=== PATIENT | male | born 1995 | race African-American/Black ===

== ENCOUNTER 2019-01-11 00:55 | Emergency (ER) | payer SELFPAY ==
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
== END 2019-01-11 01:15 ==
LOC: JD.ED 00:55
DX: F10.929 Alcohol use, unspecified with intoxication, unspecified (principal)
CPT/HCPCS: 99283

== ENCOUNTER 2022-05-10 15:59 | Emergency (ER) | payer SELFPAY ==
[2022-05-10] MEDS ORDERED: HYDROmorphone 1 MG/ML Syringe IM ONE (17:27)
[2022-05-10] MEDS ORDERED: Ketorolac 30 MG/ML SDV IM ONE (17:27)
== END 2022-05-10 18:15 | disposition home or self-care (01) ==
LOC: JD.ED 15:59
DX: K08.89 Other specified disorders of teeth and supporting structures (principal); F17.210 Nicotine dependence, cigarettes, uncomplicated
CPT/HCPCS: 96372; 99282; J1170; J1885